=== PATIENT | male | born 1940 | race Caucasian/White ===

== ENCOUNTER 2025-03-14 12:53 | Inpatient (IN) | payer MEDICARE, SELFPAY ==
--- OUTSIDE RECORDS SUMMARY | 2019-02-28 08:00 | XMS_ITS | Continuity of Care Document ---
Author Organization [facility] Address [address] [place] [address] Phone Care Team Providers Care Beam Doffer Name Role Phone Colin Knutson MD Unavailable Unavailable Allergies, Adverse Reactions, Alerts Substance Reaction Status Criticality No Known Allergies Active No Inform ation Medications Medication Instructions Dosage Effective Dates (start - stop) Status Comments pravastatin 40 mg tablet take 1 tablet by oral route every day 40 MG - Active metformin 500 mg tablet take 1 tablet by oral route 2 times every day with morning and evening meals 500 MG - Active aspirin 325 mg tablet take 1 tablet by oral route every day 325 MG - Active amlodipine 5 mg-valsartan 160 mg tablet take 1 tablet by oral route every day 1.00 tablet - Active allopurinol 300 mg tablet take 1 tablet by oral route every day 300 MG - Active Procedures Procedure Date A-Scan Via IOL Master Scanning Computerized Diag Image-retina TC Only Offic/outpt E&m [facility] Accelerate Mobile Apps-oh 45 9 Advance Directives Directive Yes / No Effective Date File Name No Information Encounters Encounter Description Practice Location Reason(s) For Visit Diagnoses Date Provider Providers Copied on Encounter Offic/outpt E&m New Mod-hi 45 [facility], [address] [place], [place], [id number], [place] tel:[phone] [facility] routine new cataract (chief complaint) Nuclear Cataract OUBRVO OS Eamon Shaw. [address], [address], [place], [place], [id number], [place]. tel:[phone] Family History Family Member Type Diagnosis Age At Onset No Information Payers Payer name Insurance type Covered democrat ID Samira mann(mariia) Tito Medicare 16 [id number] Social History Type Description Quantity Date Captured Comments Alcohol Use Details No Caffeine Use Details Tobacco Use Status No Information Smoking Status Never smoker Non-Smoking Tobacco Use Details : No Details Available : No Details Available Sex Male Chief Complaint And Reason For Visit From encounter dated '02/28/2019 13:00'. routine new cataract (chief complaint). Description: The 78 year old male presents for routine new cataract. Patient referred by Dr. Donato Galeana. Patient has moderate gradual blurry vision in both eyes for multiple months. Also has trouble driving or reading. Pt has issues with glare. Reason For Referral Reason For Referral No Information History Of Present Illness Encounter Date Complaint History Of Prese nt Illness No Information Functional Status Date Functional Assessmen t No Information Instructions Date Instruction Additional Infor mation Impression/Plan Related to Nucle ar Cataract OU Impression/Plan Related to BRVO OS Assessments Type Assessment Date assessment Nuclear Cataract OU impression Nuclear Cataract OU: H25.13 assessment BRVO OS impression BRVO OS: H34.8322 Patient Care Teams Name Effective Dates (start - stop) Status Members No Information
[2025-03-14] VITALS (19 sets, daily range): BP systolic 91–140; BP diastolic 56–97; PULSE 71–84; RESP 15–29; TEMP 36.5–36.6; O2SAT 92–97; BMI 32.5
--- NOTE | 2025-03-14 12:51 | ECG_ITS ---
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: : 1940 Requested By: Thao Ashford Order Number: [id number] Reading MD: VAHID BENAVIDEZ Measurements Intervals [place] Rate: 84 P: 16 OR: 219 QRS: -87 QRSD: 154 T: 43 QT: 406 QTc: 481 Interpretive Statements SINUS RHYTHM WITH FIRST DEGREE AV BLOCK RIGHT BUNDLE BRANCH BLOCK [120+ ms QRS DURATION, UPRIGHT V1, 40+ ms S IN I/aVL/V4/V5/V6] LEFT ANTERIOR FASCICULAR BLOCK [QRS AXIS <= -45, QR IN I, RS IN II] SEPTAL MYOCARDIAL INFARCTION , OF INDETERMINATE AGE [40+ ms Q WAVE IN V1/V2] No previous ECG available for comparison Electronically Signed On 03-14-2025 21:34:10 CDT by VAHID BENAVIDEZ [id number] [id number]
--- NOTE | 2025-03-14 12:54 | XRR_ITS ---
PROCEDURE INFORMATION: Exam: XR Chest Exam date and time: 03/14/2025 12:58 PM Age: 84 years old Clinical indication: Pain; Chest pressure; Additional info: Chest pain; Nstemi; Elevated trop TECHNIQUE: Imaging protocol: Radiologic exam of the chest. Views: 1 view. COMPARISON: No relevant prior studies available. FINDINGS: Lungs: Unremarkable. No consolidation or mass. Pleural spaces: Unremarkable. No pleural effusion. No pneumothorax. Heart/Mediastinum: Unremarkable. No cardiomegaly. Bones/joints: Unremarkable. XR/XR chest 1V portable [id number] IMPRESSION: No acute findings.
--- NOTE | 2025-03-14 12:55 | W.ED.CHESTPA ---
HPI - Chest Pain General: Chief Complaint: Chest Pain Stated Complaint: chest pain Time Seen by Provider: 03/14/25 12:54 History of Present Illness: 84-year-old man with a history of obesity, hypertension and diabetes who presents to the emergency room by ambulance from [facility] in [place] with chest pain concern for an abnormal EKG. Dr. Neri from [facility] had talked with cardiology Dr. Thomas here and although there was not a STEMI was an abnormal EKG (right bundle branch block with some ST changes) Dr. Thomas requested the patient be transferred ER to ER for possible emergent Lead Tank Mechanic. Speaking with patient he says he had some slight chest pain overnight that was very brief and then he went to sleep and had no trouble but this afternoon he developed a severe pain about 30 minutes before he went into the hospital. Central chest pressure that radiated into his jaw. On arrival here he says he no longer has the pain in the jaw and he had done better with Nitropaste and heparin drip but is starting to have pain again. He was quite diaphoretic according to [facility] doctor. He has no known cardiac disease. He does report that he has a mass on his kidney and there is plan for biopsy in the near future Related Data Allergies Allergy/AdvReac Type Severity Reaction Status Date / Time No Known Allergies Allergy Verified 03/14/25 13:01 Review of Systems Narrative: Constitutional symptoms: Negative except as documented in HPI. Skin symptoms: Negative except as documented in HPI. Eye symptoms: Negative except as documented in HPI. ENMT symptoms: Negative except as documented in HPI. Respiratory symptoms: Negative except as documented in HPI. Cardiovascular symptoms: Negative except as documented in HPI. Gastrointestinal symptoms: Negative except as documented in HPI. Genitourinary symptoms: Negative except as documented in HPI. Musculoskeletal symptoms: Negative except as documented in HPI. Neurologic symptoms: Negative except as documented in HPI. Psychiatric symptoms: Negative except as documented in HPI. Endocrine symptoms: Negative except as documented in HPI. Physical Exam Narrative: EXAM NARRATIVE: General: Alert, no acute distress. Skin: Warm, dry. Head: Normocephalic, atraumatic. Neck: Supple, trachea midline. Eye: Extraocular movements are intact. Ears, nose, mouth and throat: mucosa moist. Cardiovascular: Regular, Normal peripheral perfusion. Respiratory: Lungs are clear to auscultation, respirations are non-labored, breath sounds are equal, Symmetrical chest wall expansion. Gastrointestinal: Soft, Nontender, Non distended Musculoskeletal: Normal ROM, no deformity. Neurological: Alert and oriented, No focal neurological deficit observed. Psychiatric: Cooperative, appropriate mood & affect. Course Vital Signs: Vital signs: Vital Signs Temperature 97.7 F 03/14/25 12:54 Pulse Rate 83 03/14/25 13:15 Respiratory Rate 21 H 03/14/25 13:07 Blood Pressure 140/97 03/14/25 13:15 Pulse Oximetry 97 03/14/25 13:15 Oxygen Delivery Me thod Room Air 03/14/25 13:07 MDM - Chest Pain Medical Decision Making Differential diagnosis for patient with chest pain includes but is not limited to and based on the above HPI, review of systems and physical exam: Pneumonia. unstable angina. angina. Acute coronary syndrome / AL. Pulmonary embolism. Costochondritis / musculoskeletal. Pleurisy. Pericarditis. Esophageal spasm. Pancreatis. Cholecystitis. Orders placed to evaluate differential diagnosis based on the above differential, HPI and physical exam EKG: Time 1251. Rate 84. Normal sinus rhythm, no ectopy, right bundle branch block, left anterior fascicular block. Septal myocardial infarction of indeterminate age/ST changes. This was reviewed and interpreted by myself the ER physician Chest x-ray: No acute process. No infiltrate. No pneumothorax. Films were interpreted by myself the emergency room provider and pending final radiology review. Lab Review: Laboratory results were reviewed and interpreted by myself the emergency room physician. Mild leukocytosis with white count 14,000. No anemia. At time of Lead Tank Mechanic lab work here is pending but lab work from [facility] just came through. BUN and creatinine are 21 and 1.3. Calcium is 10.3. Him sodium is 141. proBNP was 452. Troponin was 108. Lactate was 2.2 I reviewed the patient's medical record. I reviewed note and labs sent from [facility]. Consultation: I spoke again with Dr. Thomas. He is taking the patient to the Lead Tank Mechanic but given his multiple medical problems he feels the patient needs to be admitted to the hospitalist. Consultation: I spoke with Dr. Guerrero who is on-call for the hospitalist service who agrees to admission. Assessment and plan: Chest pain Elevated troponin Abnormal EKG ?Patient has received a heparin bolus already. Given morphine. Zofran. And 600 mg Plavix in the emergency room -I discussed the patient with the hospitalist on-call who is admitting the patient. - Discussed findings and plan with patient. Answered any questions. - All laboratory values were reviewed and interpreted personally by myself, the ER physician - All imaging was reviewed and interpreted personally by myself, the ER physician. - Evaluation and treatment of this problem were appropriate in the emergency setting Lab Data 03/14/25 12:59 03/14/25 12:59 Laboratory Results WBC 14.32 10^3/uL (3.29-11.43) H 03/14/25 12:59 RBC 6.01 10^6/uL (3.85-5.65) H 03/14/25 12:59 Hgb 15.50 g/dL (11.27-16.99) 03/14/25 12:59 Hct 48.1 % (37-53) 03/14/25 12:59 MCV 80.0 fl (82-101) L 03/14/25 12:59 MCH 25.8 pg (27-33) L 03/14/25 12:59 MCHC 32.2 g/dL (30-55) 03/14/25 12:59 RDW 15.1 % (12.1-15.1) 03/14/25 12:59 Plt Count 176 10^3/cmm (157-399) 03/14/25 12:59 MPV 10.8 fL (7.4-10.4) H 03/14/25 12:59 Neut % (Auto) 66.9 % 03/14/25 12:59 Lymph % (Auto) 15.6 % 03/14/25 12:59 Newton % (Auto) 13.8 % 03/14/25 12:59 Eos % (Auto) 1.7 % 03/14/25 12:59 Baso % (Auto) 1.3 % 03/14/25 12:59 Neut # (Auto) 9.58 10^3/uL (1.8-7.7) H 03/14/25 12:59 Lymph # (Auto) 2.2 10^3/uL (0.8-4.8) 03/14/25 12:59 Newton # (Auto) 2.0 10^3/uL (0.2-0.9) H 03/14/25 12:59 Eos # (Auto) 0.3 10^3/uL (0.0-0.8) 03/14/25 12:59 Baso # (Auto) 0.2 10^3/uL (0.0-0.1) H 03/14/25 12:59 Nucleated RBC % (auto) 0 % 03/14/25 12:59 Nucleated RBCs # 0.0 /100WBC 03/14/25 12:59 XR interpretation done by ED provider, pending radiology final review Discharge Plan Discharge Patient Disposition: Admitted As Inpatient Clinical Impression: Elevated troponin, Chest pain, Abnormal ECG Condition: Stable Coding Level of Care Code ED Group Reservations Coordinator for Jerry Moreno
[2025-03-14 13:03] LABS: Hematocrit 48.1 % (37-53); Hemoglobin 15.50 g/dL (11.27-16.99); Mean Corpuscular HGB Conc 32.2 g/dL (30-55); Mean Corpuscular Hemoglobin 25.8 pg (27-33); Mean Corpuscular Volume 80.0 fl (82-101); Nucleated Red Blood Cells % 0 %; Platelet Count 176 10^3/cmm (157-399); Red Blood Count 6.01 10^6/uL (3.85-5.65); White Blood Count 14.32 10^3/uL (3.29-11.43)
[2025-03-14] MEDS: morphine 4 mg/mL SDV 1 mL IVP (13:05)
[2025-03-14] MEDS: ondansetron 2 mg/ML SDV 2 mL 4 MG IVP (13:05)
--- NOTE | 2025-03-14 13:13 | PC.NURSE ---
Medications: Isabella Ovalles administered: 4000 unit heparin bolus 0.5g Nitro Paste to L upper chest 324mg ASA started herparin gtt (gtt d/c upon arrival to [facility] ED) EMS administered: SL nitro en route (see MAR for meds admin upon pt arrival)
--- NOTE | 2025-03-14 13:20 | P.CONIM_ITS ---
Providers/Reason For Consult 2 Consulting Physician/Specialty*: Digna Thomas MD/interventional cardiology Reason for Consult*: Unstable non-ST elevation CO Requesting Physician: 84-year-old male past medical history si gnificant for history of partial nephrectomy due to renal cell carcinoma diabetes mellitus obesity is non-smoker no drug abuse presented in an outside hospital [facility], ER with chest pain radiating to neck jaw diaphoresis, twelve-lead EKG is consistent with right bundle branch block no significant ST elevation noted. Since suspicion for pulmonary embolism was low and patient had the chest pain relieved with nitroglycerin going to neck and jaw however clinical scenario is more consistent with acute coronary syndrome. Because of the fact patient continues to have chest pain I will proceed with early invasive strategy with coronary anemogram. Further plan will be advised as per progress the patient. Patient has history of prior bleeding per urethra. Patient understand that this procedure because of the blood thinner and antiplatelet can exacerbate bleeding and him. However given the urgency of the nature of the procedure will proceed with left heart cath/PCI if indicated. Attending Physician: Digna Thomas MD Primary Care Provider: Kash Lloyd History of Present Illness History of Present Illness Kash Lozano is a 84 year old male Review of Systems 2 Narrative: Constitutional symptoms: Negative except as documented in HPI. Skin symptoms: Negative except as documented in HPI. Eye symptoms: Negative except as documented in HPI. ENMT symptoms: Negative except as documented in HPI. Respiratory symptoms: Negative except as documented in HPI. Cardiovascular symptoms: Negative except as documented in HPI. Gastrointestinal symptoms: Negative except as documented in HPI. Genitourinary symptoms: Negative except as documented in HPI. Musculoskeletal symptoms: Negative except as documented in HPI. Neurologic symptoms: Negative except as documented in HPI. Psychiatric symptoms: Negative except as documented in HPI. Endocrine symptoms: Negative except as documented in HPI. Medications/Allergies Allergies Allergy/AdvReac Type Severity Reaction Status Date / Time No Known Allergies Allergy Verified 03/14/25 13:01 Vitals/I&O/Wt Last Vital Signs Temp 97.7 F 03/14/25 12:54 Pulse 83 03/14/25 13:15 Resp 21 H 03/14/25 13:07 BP 140/97 03/14/25 13:15 Pulse Ox 97 03/14/25 13:15 O2 Del Method Room Air 03/14/25 13:07 Weight last 48 hrs Weight 220 lb Physical Exam 2 Const: OTHER: GENERAL: Patient is alert, awake and oriented x3. Moderate distress HEART: Regular S1 and S2. No murmur, rub or gallop. LUNGS: Clear to auscultate bilaterally. CENTRAL NERVOUS SYSTEM: Grossly nonfocal. EXTREMITIES: Lower extremities with out edema bilaterally. Data 03/14/25 12:59 03/14/25 12:59 A&P Assessment and plan 1. Abnormal EC. Chest pain: 3. Acute coronary syndrome: Plan: Will proceed with urgent left heart cath/PCI if indicated. Further plan be advised as per progress of patient. Patient has been loaded with 600 mg of Plavix and aspirin he was given heparin in the ED and on Nitropaste with PDMP PDMP Reviewed: Not Reviewed Coding Level of Care Code Acute Code for g Fwd Diagnoses Abnormal ECG R94.31 Chest pain R07.9 Acute coronary syndrome I24.9
[2025-03-14 13:34] LABS: Alanine Aminotransferase < 5 U/L (0-41); Albumin Level 4.1 g/dL (3.5-5.2); Alkaline Phosphatase 68 U/L (40-130); Anion Gap 19.0 (5-19); Aspartate Amino Transferase 19 U/L (0-40); Blood Urea Nitrogen 21 mg/dL (8-23); Calcium 9.7 mg/dL (8.5-10.5); Carbon Dioxide 23 mmol/L (22-29); Chloride 104 mmol/L (98-107); Creatinine Clr Calc Pharmacy 55.2719; Globulin 2.8 g/dL (1.3-4.6); Glucose 130 mg/dL (65-115); NT Pro B Type Natriuretic Pept 539 pg/mL (0-450); Osmolality Calculated 299 mOsm/kg (285-295); Potassium 4.0 mmol/L (3.5-5.1); Sodium 142 mmol/L (136-145); Total Protein 6.9 g/dL (6.6-8.7)
--- NOTE | 2025-03-14 15:22 | P.PCN_ITS ---
Procedure Note: Date of procedure: 03/14/25 Pre-procedure diagnosis: Acute coronary syndrome Procedure: Indication acute Conn syndrome/unstable non-ST elevation OK Urgent left heart cath was performed Left main did not have significant Proximal LAD has high-grade 90% stenosis Mid LAD has 99% subtotal calcified occlusion acute on chronic it is the culprit vessel, diagonal branch has mid 50 to 60% stenosis Left circumflex is a large-caliber codominant vessel no significant stenosis RCA is moderate-sized in caliber vessel with chronic mid total occlusion, conus branch has mid 90% stenosis PCI to mid and proximal LAD using intravascular lithotripsy due to high calcified lesions multiple balloon angioplasties including compliant noncompliant balloon followed by 2 drug-eluting stents 1 in mid LAD and 1 in proximal LAD with excellent angiographic result and oriental orthodox of BENNY-3 flow. No complication noted. Plan: Patient was loaded with 600 mg of Plavix in the ER along with aspirin. Continue dual antiplatelet therapy in the form of 75 mg of Plavix and 81 mg of aspirin from tomorrow Statin has been added Will add metoprolol or carvedilol depending upon the blood pressure over next 24 hours. Echocardiogram to assess LV function depending upon that we will add DARIANA ARB Entresto or SGLT2 Full note to be dictated Further plan will be devised as per progress of the patient Coding Level of Care Code Acute Code for Jerry Moreno
--- NOTE | 2025-03-14 17:53 | PM.HP ---
Providers/Chief Complaint Admitting Physician: Baldev Guerrero MD Primary Care Provider: Kash Gabino Chief Complaint: chest pain History of Present Illness Kash Lozano is a 84 year old male with history of hyperlipidemia, gout, left kidney cancer status post 2 resections of about 10% of his kidney each time at [facility] in [place] by Dr. Braun. 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 After care home he felt that [place] was too crowded so he moved to [place] to be close to his son and daughter here. Son is a [employer] at [employer] Patient is active in his yard and typically does not have trouble with stairs. He was using a license inspector in his yard which is heavy and on a wagon and he pushed and pulled that up and down the hills did okay but last evening had some chest discomfort thought it was heartburn. This morning he had chest pain more severe, abnormal EKG right bundle branch block and ST-T wave changes. Chest pain had become severe radiating to his jaw with chest pressure relieved by Nitropaste and heparin drip with obvious bedside diaphoresis noted. Patient underwent selective coronary angiogram with 2 stents to the LAD 1 proximal and 1 mid. This required intravascular lithotripsy for hide grade calcified lesions, multiple balloon angioplasties followed by 2 drug-eluting stents. He has been loaded with Plavix and aspirin in the ER and will continue on 75 mg Plavix and 81 mg aspirin starting tomorrow. 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 Left circumflex is large and no significant stenosis Patient is accompanied by his Mayra and he says he feels great now Review of Systems Narrative: General no fevers chills Cardiovascular positive for chest pain today but he has not previously had dyspnea on exertion. he has nocturia 3-5 times a night with good flow but small amount. He states he is on Flomax but has not previously been on Proscar. Medications/Allergies Home Medications ?Medication ?Instructions ?Recorded ?Confirmed ?Last Taken ?Type Protagenix 1,000 mg PO TID 03/14/25 03/14/25 03/14/25 08:00 History allopurinol 300 mg tablet 300 mg PO DAILY 0903/14/25 03/14/25 08:00 History amlodipine 5 mg-valsartan 160 mg 0.5 tab PO DAILY 03/14/25 03/14/25 03/14/25 08:00 History tablet ferrous fumarate 55 mg (18 mg See Rx Instructions .Route .COMPLEX 03/14/25 03/14/25 03/13/25 08:00 History iron) tablet,extended release metformin 500 mg tablet See Rx Instructions .Route .COMPLEX 03/14/25 03/14/25 03/13/25 History pravastatin 40 mg tablet See Rx Instructions .Route .COMPLEX 03/14/25 03/14/25 03/13/25 08:00 History tamsulosin 0.4 mg capsule 0.4 mg PO DAILY 03/14/25 03/14/25 03/14/25 08:00 History Allergies Allergy/AdvReac Type Severity Reaction Status Date / Time No Known Allergies Allergy Verified 03/14/25 13:01 PFSH Acute PFSH: Medical History (Updated 03/14/25 @ 19:10 by Baldev Guerrero MD) Right kidney mass History of primary malignant neoplasm of left kidney BPH (benign prostatic hyperplasia) Hyperlipidemia Social History (Updated 03/14/25 @ 19:09 by Baldev Guerrero MD) Smoking and tobacco/nicotine status: never used tobacco/nicotine Alcohol intake: current Alcohol intake frequency: holidays/special occasions only Substance/Drug Use: never Current occupational status: retired 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 [employer] Vitals/I&O/Wt Last Vital Signs Temp 97.7 F 03/14/25 12:54 Pulse 75 03/14/25 17:15 Resp 22 H 03/14/25 17:15 BP 102/71 03/14/25 17:15 Pulse Ox 93 03/14/25 17:15 O2 Del Method Room Air 03/14/25 15:38 03/14/25 03/14/25 03/14/25 06:59 14:59 22:59 Intake Total 360 / 360 Balance 360 / 360 Weight last 48 hrs Weight 104.734 kg Weight 99.79 kg Physical Exam Narrative: General well-developed well-nourished obese male in no acute cardiopulmonary stress Neck no JVD or bruits Cardiovascular regular rate and rhythm no loud murmurs Lungs clear to auscultation bilaterally Abdomen positive bowel tones soft nontender Calves trace ankle edema Data 03/14/25 12:59 03/14/25 12:59 A&P Assessment and plan 1. Acute coronary syndrome: EKG shows sinus rhythm with right bundle branch block and elevated troponin from outside hospital consistent with NSTEMI. Patient is on dual antiplatelet therapy and atorvastatin following PCI with stent. Will check lipids, lipoprotein a, hs-CRP and A1c and TSH 2. Hyperlipidemia: Continue atorvastatin 3. BPH (benign prostatic hyperplasia): Continue Flomax. Will add PSA and if greater than 1.5 we will add 5 alpha reductase inhibitor such as Proscar because the patient has BPH pH with nocturia 3-5 times a night 4. History of primary malignant neoplasm of left kidney: Stable and following with his urologist 5. Right kidney mass: Has evaluation of right kidney pending as well PDMP PDMP Reviewed: Not Reviewed Attestations Medical Necessity Statement*: Patient claudia in hospital with plans to titrate medication and likely discharge on Sunday Coding Level of Care Code 92839 Diagnoses Acute coronary syndrome I24.9 Hyperlipidemia E78.5 BPH (benign prostatic hyperplasia) N40.0 History of primary malignant neoplasm of left kidney Z85.528 Right kidney mass N28.89 Time Spent (min) 55
--- NOTE | 2025-03-14 18:23 | PC.NURSE ---
Initiated TR Band removal from right wrist at 1630 removing 2ml of air every 15-20min until all air removed. Band is off at this time. No s/s of bleeding or hematoma formation observed. Covered site with 2x2 and bio-occlusive dressing. Instructed patient on site care with restrictions. Patient verbalized complete understanding. Family at bedside. Assisted patient up to bathroom. No distress observed.
[2025-03-15] VITALS (7 sets, daily range): BP systolic 108–144; BP diastolic 69–88; PULSE 70–86; RESP 10–25; TEMP 36.6–36.8; O2SAT 92–97
[2025-03-15 06:38] LABS: Hematocrit 46.6 % (37-53); Hemoglobin 14.60 g/dL (11.27-16.99); Mean Corpuscular HGB Conc 31.3 g/dL (30-55); Mean Corpuscular Hemoglobin 25.8 pg (27-33); Mean Corpuscular Volume 82.5 fl (82-101); Nucleated Red Blood Cells % 0 %; Platelet Count 159 10^3/cmm (157-399); Red Blood Count 5.65 10^6/uL (3.85-5.65); White Blood Count 14.65 10^3/uL (3.29-11.43)
[2025-03-15 07:29] LABS: Anion Gap 12.2 (5-19); Blood Urea Nitrogen 20 mg/dL (8-23); CRP High Sensitivity Cardiac 0.500 mg/dL (0.0-0.3); Calcium 9.3 mg/dL (8.5-10.5); Carbon Dioxide 26 mmol/L (22-29); Chloride 106 mmol/L (98-107); Cholesterol 175 mg/dL (0-200); Creatinine Clr Calc Pharmacy 44.2980; Estmated Average Glucose 123; Glucose 106 mg/dL (65-115); HDL Cholesterol 35 mg/dL (60-100); Hemoglobin A1C 5.9 % (4.0-6.0); Osmolality Calculated 293 mOsm/kg (285-295); Potassium 4.2 mmol/L (3.5-5.1); Prostate Specific Antigen 6.200 ng/mL (0-4); Sodium 140 mmol/L (136-145); Thyroid Stimulating Hormone 4.00 uIU/mL (0.27-4.20); Triglycerides 170 mg/dL (0-150)
--- NOTE | 2025-03-15 10:37 | P.PN_ITS ---
Subjective 2 Subjective: No overnight event Vitals/I&O/Wt Last Vital Signs Temp 97.9 F 03/15/25 09:03 Pulse 78 03/15/25 09:03 Resp 19 H 03/15/25 09:03 BP 133/81 03/15/25 09:03 Pulse Ox 97 03/15/25 09:03 O2 Del Method Nasal Cannula 03/15/25 04:00 03/14/25 03/15/25 03/15/25 22:59 06:59 14:59 Intake Total 360 / 360 1256.667 / 1616.667 360 / 360 Output Total 200 / 200 350 / 550 200 / 200 Balance 160 / 160 906.667 / 1066.667 160 / 160 Weight last 48 hrs Weight 229 lb 14.4 oz Weight 129 lb 14.4 oz Weight 230 lb 14.4 oz Weight 220 lb Physical Exam 2 Const: OTHER: GENERAL: Patient is alert, awake and oriented x3. HEART: Regular S1 and S2. No murmur, rub or gallop. LUNGS: Clear to auscultate bilaterally. CENTRAL NERVOUS SYSTEM: Grossly nonfocal. EXTREMITIES: Lower extremities with out edema bilaterally. Data 03/15/25 06:07 03/15/25 06:07 A&P Assessment and plan 1. Acute coronary syndrome: 2. Non-ST elevation (NSTEMI) myocardial infarction: 3. Hyperlipidemia: PDMP PDMP Reviewed: Not Reviewed Coding Level of Care Code Acute Code for [facility] Fwd Diagnoses Acute coronary syndrome I24.9 Non-ST elevation (NSTEMI) myocardial infarction I21.4 Hyperlipidemia E78.5
[2025-03-15] MEDS: metoprolol succinate ER (24 HR) 25 mg Tablet 12.5 MG PO (12:15)
[2025-03-15] MEDS: heparin 5,000 unit/mL INJ 1 mL 5000 UNIT SUBCUT (15:28)
--- NOTE | 2025-03-15 15:28 | USCV_ITS ---
Kash Lozano Age: 84 Gender: M : 1940 Exam Date: 03/15/2025 08:55 Ordering Phys: Digna Thomas MD ([email or web address]) Technologist: Duane Grimes [place] [facility] [place]: nstemi BP: 139 / 88 HR: 75 Rhythm: Sinus Technical Quality: Adequate MEASUREMENTS (Male / Female) Normal Values 2D ECHO LV Diastolic Diameter PLAX 4.7 cm 4.2 - 5.9 / 3.9 - 5.3 cm IVS Diastolic Thickness 1.6 cm 0.6 - 1.0 / 0.6 - 0.9 cm IVS Systolic Thickness 1.6 cm LVPW Diastolic Thickness 0.7 cm 0.6 - 1.0 / 0.6 - 0.9 cm LVPW Systolic Thickness 1.7 cm LVOT Diameter 2.1 cm LV Ejection Fraction 2D Teich 57.9 % LV Ejection Fraction MOD 4C 79.8 % LV Ejection Fraction MOD 2C 73.4 % LV Ejection Fraction 2C AL 72.5 % LA Diameter 3.6 cm RA Systolic Volume 4C AL 30.8 ml RA Systolic Volume 4C MOD 29.1 ml LA Sys Volume AL 40.7 cm cubed LA Sys Volume Index AL 17.8 cm cubed/m squared Aorta at Sinotubular Diameter 2.6 cm IVC Diameter 1.6 cm DOPPLER AV Peak Velocity 212.7 cm/s LVOT Peak Velocity 107.0 cm/s AV Area Cont Eq vti 1.8 cm squared AV Area Cont Eq pk 1.7 cm squared MV Peak Velocity 133.0 cm/s MV Area PHT 4.4 cm squared Mitral E to A Ratio 0.5 TR Peak Velocity 197.0 cm/s TR Peak Gradient 15.5 mmHg TR Mean Velocity 168.0 cm/s TR Mean Gradient 11.8 mmHg TR Velocity Time Integral 44.1 cm PV Peak Velocity 89.0 cm/s RV Ejection Time 0.3 s FINDINGS Left Ventricle Normal left ventricular cavity size. Mildly decreased left ventricular systolic function. Left ventricular ejection fraction is estimated at 50 %. There is anterior and septal mild hypokinesis.Grade I/IV diastolic dysfunction (abnormal relaxation filling pattern), normal to mildly elevated filling pressures. Right Ventricle The right ventricle is normal in size and function. Right Atrium The right atrium is normal in size. Left Atrium The left atrium is normal in size. Mitral Valve Moderately thickened mitral valve. Mild mitral annular calcification. No mitral valve stenosis. No mitral valve regurgitation. Aortic Valve Severe aortic valve calcification. Moderate aortic valve stenosis, mean gradient 12.3 mmHg, ANNE 1.8 cm squared. Tricuspid Valve Structurally normal tricuspid valve without significant stenosis or regurgitation. Pulmonary artery systolic pressure is normal. Pulmonic Valve Structurally normal pulmonic valve without significant stenosis. There is no pulmonic regurgitation. Pericardium Normal pericardium without effusion. Aorta Normal ascending aorta dimension. IVC The inferior vena cava appears normal. CONCLUSIONS Normal left ventricular cavity size. Mildly decreased left ventricular systolic function. Left ventricular ejection fraction is estimated at 50 %. There is anterior and septal mild hypokinesis.Grade I/IV diastolic dysfunction (abnormal relaxation filling pattern), normal to mildly elevated filling pressures. Severe aortic valve calcification. Moderate aortic valve stenosis, mean gradient 12.3 mmHg, ANNE 1.8 cm squared. There is no pericardial effusion. Right atrial pressure is around 5 mm of mercury. Digna Thomas MD (Electronically Signed) Final Date: 15 March 2025 11:29 S
--- NOTE | 2025-03-15 16:08 | P.PN_ITS ---
Subjective 2 Subjective: 84-year-old male status post 2 LAD stents yesterday states he feels great today. He has been walking around and did fine. He has not had no further chest pain. Patient is accompanied by his Vitals/I&O/Wt Last Vital Signs Temp 97.9 F 03/15/25 09:03 Pulse 80 03/15/25 14:00 Resp 12 03/15/25 12:01 BP 144/77 03/15/25 12:01 Pulse Ox 96 03/15/25 12:01 O2 Del Method Nasal Cannula 03/15/25 04:00 03/15/25 03/15/25 03/15/25 06:59 14:59 22:59 Intake Total 1256.667 / 1616.667 720 / 720 Output Total 350 / 550 200 / 200 Balance 906.667 / 1066.667 520 / 520 Weight last 48 hrs Weight 104.281 kg Weight 58.922 kg Weight 104.734 kg Weight 99.79 kg Physical Exam 2 Narrative: General well-developed well-nourished obese male in no acute cardiopulmonary stress Neck no JVD or bruits Cardiovascular regular rate and rhythm no loud murmurs Lungs clear to auscultation bilaterally Abdomen positive bowel tones soft nontender Calves trace ankle edema Data 03/15/25 06:07 03/15/25 06:07 A&P Assessment and plan 1. Acute coronary syndrome: EKG shows sinus rhythm with right bundle branch block and elevated troponin from outside hospital consistent with NSTEMI. Patient is on dual antiplatelet therapy and atorvastatin following PCI with stent. Hs-CRP was 0.5 which is barely high and not in need of treatment Triglycerides 170 LDL 106 HDL 35 Lipoprotein a result is pending He was transition to atorvastatin 40 from pravastatin 40 goal LDL below 50 and drop in triglyceride to affected triglyceride to HDL ratio of less than 1.5 ideally. Increase to 80 mg atorvastatin follow-up in 2 months and consider adding fenofibrate or omega-3 fatty acids 2. Hyperlipidemia: Continue atorvastatin but increase to 80 mg but increase to 80 mg and take this as tolerated Hs-CRP was 0.5 which is barely high and not in need of treatment Triglycerides 170 LDL 106 HDL 35 Lipoprotein a result is pending He was transition to atorvastatin 40 from pravastatin 40 goal LDL below 50 and drop in triglyceride to affected triglyceride to HDL ratio of less than 1.5 ideally. Follow-up in 2 months and consider adding fenofibrate or omega-3 fatty acids 3. BPH (benign prostatic hyperplasia): Continue Flomax. Will add PSA and if greater than 1.5 we will add 5 alpha reductase inhibitor such as Proscar because the patient has BPH pH with nocturia 3-5 times a night PSA is 6.2 and patient states he has an enlarged prostate already reported to him. Start Avodart which is an alpha 1 reductase inhibitor to shrink the prostate 4. History of primary malignant neoplasm of left kidney: Stable and following with his urologist 5. Right kidney mass: Has evaluation of right kidney pending as well. Patient is wondering when Plavix will be able to be held. Counseled him that he should discuss it with with Dr. Thomas but I do not think we do want to hold the Plavix at all for at least 3 months and ideally not held up to a year but depending on the findings on the kidney compromise have to be made PDMP PDMP Reviewed: Not Reviewed Attestations 2 Medical Necessity Statement*: Patient remains in hospital for monitoring with ambulation post PCI with 2 drug- eluting stents in the LAD. Anticipate discharge after 1 midnight more in the morning tomorrow Coding Level of Care Code Acute Code for Chg Fwd Diagnoses Acute coronary syndrome I24.9 Hyperlipidemia E78.5 BPH (benign prostatic hyperplasia) N40.0 History of primary malignant neoplasm of left kidney Z85.528 Right kidney mass N28.89 Time Spent (min) 35
[2025-03-16 00:19] VITALS: BP 145/85; PULSE 74; RESP 16; TEMP 36.6; O2SAT 97
[2025-03-16 03:38] VITALS: BP 129/77; PULSE 76; RESP 20; TEMP 36.7; O2SAT 94
[2025-03-16] MEDS: heparin 5,000 unit/mL INJ 1 mL 5000 UNIT SUBCUT (03:41)
[2025-03-16 08:09] VITALS: BP 139/79; PULSE 75; RESP 18; TEMP 36.7; O2SAT 93
--- NOTE | 2025-03-16 08:45 | PM.DCS ---
Discharge Providers Date of Admission: 03/14/25 15:17 Date of Discharge: March 16, 2025 Attending Provider at Admission: Digna Thomas MD Attending Provider at Discharge: Tyron Coles MD Primary Care Provider: Kahs Gabino Diagnoses at Discharge Discharge Diagnosis 1. Acute coronary syndrome: 2. Hyperlipidemia: 3. BPH (benign prostatic hyperplasia): 4. History of primary malignant neoplasm of left kidney: 5. Right kidney mass: Reason for Visit Reason for Visit: chest pain Hospital Course Hospital Course Kash Lozano is a 84 year old male with history of hyperlipidemia, gout, left kidney cancer status post 2 resections of about 10% of his kidney each time at [facility] in [place] by Dr. Braun. 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 After detention he felt that [place] was too crowded so he moved to [place] to be close to his son and daughter here. Son is a Burson at [employer] Patient is active in his yard and typically does not have trouble with stairs. He was using a tank car repairer in his yard which is heavy and on a wagon and he pushed and pulled that up and down the hills did okay but last evening had some chest discomfort thought it was heartburn. This morning he had chest pain more severe, abnormal EKG right bundle branch block and ST-T wave changes. Chest pain had become severe radiating to his jaw with chest pressure relieved by Nitropaste and heparin drip with obvious bedside diaphoresis noted. Patient underwent selective coronary angiogram with 2 stents to the LAD 1 proximal and 1 mid. This required intravascular lithotripsy for high grade calcified lesions, multiple balloon angioplasties followed by 2 drug-eluting stents. He has been loaded with Plavix and aspirin in the ER and will continue on 75 mg Plavix and 81 mg aspirin starting tomorrow. 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 Left circumflex is large and no significant stenosis Patient did not have any further chest pain during hospitalization. He has been discharged home in medically stable condition on DAPT, statin with advised to follow-up with cardiology team as an outpatient. Physical Exam Narrative: General well-developed well-nourished obese male in no acute cardiopulmonary stress Neck no JVD or bruits Cardiovascular regular rate and rhythm no loud murmurs Lungs clear to auscultation bilaterally Abdomen positive bowel tones soft nontender Calves trace ankle edema Discharge Data Studies Completed and Pending Completed Studies During Hospitalization Category Date Time Status XR chest 1V portable [id number] Stat Exams 03/14/25 12:54 Completed CV. 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 Echocardiogram: CONCLUSIONS Normal left ventricular cavity size. Mildly decreased left ventricular systolic function. Left ventricular ejection fraction is estimated at 50 %. There is anterior and septal mild hypokinesis.Grade I/IV diastolic dysfunction (abnormal relaxation filling pattern), normal to mildly elevated filling pressures. Severe aortic valve calcification. Moderate aortic valve stenosis, mean gradient 12.3 mmHg, ANNE 1.8 cm squared. There is no pericardial effusion. Right atrial pressure is around 5 mm of mercury. Digna Thomas MD (Electronically Signed) Final Date: 15 March 2025 Laboratory Results WBC 14.65 10^3/uL (3.29-11.43) H 03/15/25 06:07 RBC 5.65 10^6/uL (3.85-5.65) 03/15/25 06:07 Hgb 14.60 g/dL (11.27-16.99) 03/15/25 06:07 Hct 46.6 % (37-53) 03/15/25 06:07 MCV 82.5 fl (82-101) 03/15/25 06:07 MCH 25.8 pg (27-33) L 03/15/25 06:07 MCHC 31.3 g/dL (30-55) 03/15/25 06:07 RDW 15.4 % (12.1-15.1) H 03/15/25 06:07 Plt Count 159 10^3/cmm (157-399) 03/15/25 06:07 MPV 10.8 fL (7.4-10.4) H 03/15/25 06:07 Neut % (Auto) 68.2 % 03/15/25 06:07 Lymph % (Auto) 13.9 % 03/15/25 06:07 [place] % (Auto) 14.8 % 03/15/25 06:07 Eos % (Auto) 1.4 % 03/15/25 06:07 Baso % (Auto) 1.0 % 03/15/25 06:07 Neut # (Auto) 9.98 10^3/uL (1.8-7.7) H 03/15/25 06:07 Lymph # (Auto) 2.0 10^3/uL (0.8-4.8) 03/15/25 06:07 [place] # (Auto) 2.2 10^3/uL (0.2-0.9) H 03/15/25 06:07 Eos # (Auto) 0.2 10^3/uL (0.0-0.8) 03/15/25 06:07 Baso # (Auto) 0.2 10^3/uL (0.0-0.1) H 03/15/25 06:07 Nucleated RBC % (auto) 0 % 03/15/25 06:07 Nucleated RBCs # 0.0 /100WBC 03/15/25 06:07 Sodium 140 mmol/L (136-145) 03/15/25 06:07 Potassium 4.2 mmol/L (3.5-5.1) 03/15/25 06:07 Chloride 106 mmol/L (98-107) 03/15/25 06:07 Carbon Dioxide 26 mmol/L (22-29) 03/15/25 06:07 Anion Gap 12.2 (5-19) 03/15/25 06:07 BUN 20 mg/dL (8-23) 03/15/25 06:07 Creatinine 1.2 mg/dL (0.7-1.2) 03/15/25 06:07 GFR Calculation Not Reportable 03/15/25 06:07 Glucose 106 mg/dL (65-115) 03/15/25 06:07 Estimat Average Glucose 123 03/15/25 06:07 Hemoglobin A1c 5.9 % (4.0-6.0) 03/15/25 06:07 Calculated Osmolality 293 mOsm/kg (285-295) 03/15/25 06:07 Calcium 9.3 mg/dL (8.5-10.5) 03/15/25 06:07 Total Bilirubin 0.4 mg/dL (0.15-1.2) 03/14/25 12:59 AST 19 U/L (0-40) 03/14/25 12:59 ALT < 5 U/L (0-41) 03/14/25 12:59 Alkaline Phosphatase 68 U/L (40-130) 03/14/25 12:59 C-React Prot High Sens 0.500 mg/dL (0.0-0.3) H 03/15/25 06:07 NT-Pro-B Natriuret Pep 539 pg/mL (0-450) H 03/14/25 12:59 Total Protein 6.9 g/dL (6.6-8.7) 03/14/25 12:59 Albumin 4.1 g/dL (3.5-5.2) 03/14/25 12:59 Globulin 2.8 g/dL (1.3-4.6) 03/14/25 12:59 Triglycerides 170 mg/dL (0-150) H 03/15/25 06:07 Cholesterol 175 mg/dL (0-200) 03/15/25 06:07 LDL Cholesterol, Calc 106 mg/dL (50-129) 03/15/25 06:07 HDL Cholesterol 35 mg/dL (60-100) L 03/15/25 06:07 LDL/HDL Ratio 3.03 RATIO (0.00-3.22) 03/15/25 06:07 Cholesterol/HDL Ratio 5.00 mg/dL (1.0-5.00) 03/15/25 06:07 Prostate Specific Ag 6.200 ng/mL (0-4) H 03/15/25 06:07 TSH 4.00 uIU/mL (0.27-4.20) 03/15/25 06:07 Vitals Last Vital Signs Temp 98.1 F 03/16/25 08:09 Pulse 75 03/16/25 08:09 Resp 18 03/16/25 08:09 BP 139/79 03/16/25 08:09 Pulse Ox 93 03/16/25 08:09 O2 Del Method Room Air 03/16/25 03:38 Discharge Plan Discharge Patient Disposition: Home Condition: Stable Prescriptions: New aspirin 81 mg Tablet,Delayed Release (Dr/Ec) 81 mg PO DAILY Qty: 60 0RF clopidogrel 75 mg Tablet 75 mg PO DAILY Qty: 30 0RF metoprolol succinate 25 mg Tablet Extended Release 24 Hr 12.5 mg PO DAILY 30 Days Qty: 30 0RF dutasteride 0.5 mg Capsule 0.5 mg PO DAILY Qty: 30 0RF amlodipine 5 mg tablet 5 mg PO DAILY Qty: 30 0RF valsartan 160 mg tablet 160 mg PO DAILY Qty: 30 0RF Continued ferrous fumarate 55 mg (18 mg iron) Tablet Extended Release See Rx Instructions .ROUTE .COMPLEX Rx Instructions: 55 mg orally 3 times per week allopurinol 300 mg Tablet 300 mg PO DAILY Protagenix 1,000 mg 1,000 mg PO TID Changed pravastatin 40 mg Tablet 40 mg PO DAILY Qty: 30 0RF tamsulosin 0.4 mg capsule 0.8 mg PO DAILY Qty: 60 0RF Discontinued metformin 500 mg Tablet See Rx Instructions .ROUTE .COMPLEX Rx Instructions: 500 mg orally 3 times per week amlodipine-valsartan 5-160 mg tablet 0.5 tab PO DAILY Discharge Order = DC NOW: Discharge Order (Routine); Ordered 03/16/25 Ordered By: Tyron Coles Referrals: Digna Thomas MD [Physician, Cardiology] - 04/07/25 1:30 pm Kash Lloyd [Primary Care Provider, Family Practice] - 03/18/25 10:40 am Discharge Diet: Cardiac Discharge Activity: Resume usual activity and Increase activity as tolerated Patient Instructions: Metoprolol (By mouth) (Lopressor, Toprol XL), Amlodipine (By mouth), Clopidogrel (By mouth) (Plavix), Dutasteride (By mouth) (Avodart), Coronary Angioplasty (DC), Opioid Safety, Post Angiogram Home Care Instructions, Patient Portal & Mu Instructions Activity Restrictions/Additional Instructions: Follow-up with cardiology on set appointment. Take aspirin, Plavix along with statin. Check your blood pressure daily at home maintain blood pressure diary. Discharge Attestations Time Spent in Discharge Care*: greater than 30 min Specific Discharge Activities: educating patient, educating and/or supporting family/caregiver, discussing with pcp/other providers, discussing with manager of case management/social workers/dc planners, documenting/other paperwork and evaluating patient/reviewing data Status at Discharge: Cognitive status at discharge: cognitively intact, Behavioral status at discharge: cooperative, Functional status at discharge: independent ambulation, Overall status at discharge: patient is back to baseline Quality Metrics Clinical Quality Measures [ No reported AMI, CVA or VTE this stay] Coding Level of Care Code 32305 Total time (in minutes) for Discharge: 65 Diagnoses Acute coronary syndrome I24.9 Hyperlipidemia E78.5 BPH (benign prostatic hyperplasia) N40.0 History of primary malignant neoplasm of left kidney Z85.528 Right kidney mass N28.89
[2025-03-16] MEDS: metoprolol succinate ER (24 HR) 25 mg Tablet 12.5 MG PO (09:12)
--- NOTE | 2025-03-16 09:24 | PC.SOCIAL ---
IMM Update pg 2 of IMM Updated and reviewed w/ patient. Copy provided and copy dated, initialed and placed in chart.
[2025-03-16 09:33] LABS: Iron 31 ug/dL (59-158); Total Iron Binding Capacity 245 mcg/dl; Unsaturated Iron Binding 214 ug/dL (112-347); Vitamin B12 506 pg/mL (232-1245)
--- NOTE | 2025-03-16 09:52 | PC.CHAP ---
Pastoral Care Encounter/Spiritual Assessment Type of Contact [] Declined press secretary visit [] Patient/Family/Request visit [] Outpatient visit [] Follow-up visit [] Physician referral [] Code/Alert [x] Routine visit [] Staff referral [] Actively dying [] Patient sleeping [] Family support [] [] Out of room [] Palliative care [] [] Receiving care in room [] Pre-surgical visit [] Trauma [] Long length of stay [] ICU visit [] Other: Relational/Emotional Strength [] Patient feels connected with others/family/visitors/staff [] Distress [] Loneliness/isolation [] Abandonment Spirituality of Patient [x] Person of Josefina [] Attends Congregational of their Josefina [x] Believes in Prayer [] Reads Bible or Advent materials [] There are Spiritual issues to be addressed Copy Center Associate Interventions [x Prayer [x] Active listening [] Non-anxious presence [] Spiritual/emotional support [] Crisis/trauma care [] Spiritual counseling [] Bereavement support [] Provided bereavement packet [x] Provided Bible/devotional materials [] Provided toy/stuffed animal, coloring book to patient or family member [] Provided Communion [] Anointing/Butler [] Salvation [x] Completed spiritual assessment [] Other: Impact on Illness or Injury [] Angry [] Fearful [] Anxious [] Often cries [] Exhaustion [] Unable to work [] Unable to attend mandaeism [] Unable to walk/stand [] Unable to read [] Unable to drive [] Unable to eat/drink [] Unable to sleep [] Unable to be with family [] Patient intubated [] Other: Summary Time spent with patient 10 min
--- NOTE | 2025-03-16 11:39 | P.PN_ITS ---
<Statement entered by Digna Thomas MD - 03/19/25 20:05> Patient was evaluated and cared for in conjunction with an advanced practice practitioner. I personally examined the patient and reviewed the chart and all pertinent data including imaging, telemetry, and laboratory results. I discussed the patient in detail with the advanced practice practitioner. Please see their note for complete H&P testing result and agreed upon plan of care for the patient. Subjective 2 Subjective: No events overnight, has done well. Will discuss with his team in regards to urgency of renal biopsy, if it cannot be delayed for 3 months, then he can wait one month, hold Plavix for 5 days and restart after procedure. No chest pain since stents to LAD. Vitals/I&O/Wt Last Vital Signs Temp 98.1 F 03/16/25 08:09 Pulse 75 03/16/25 08:09 Resp 18 03/16/25 08:09 BP 139/79 03/16/25 08:09 Pulse Ox 93 03/16/25 08:09 O2 Del Method Room Air 03/16/25 03:38 03/15/25 03/16/25 03/16/25 22:59 06:59 14:59 Intake Total 480 / 1200 480 / 480 Balance 480 / 1000 480 / 480 Weight last 48 hrs Weight 229 lb 14.4 oz Weight 129 lb 14.4 oz Weight 230 lb 14.4 oz Weight 220 lb Physical Exam 2 Const: COMMON NORMALS: no acute distress and patient oriented x3 GENERAL APPEARANCE: cooperative ORIENTATION/CONSCIOUSNESS: Yes awake, Yes oriented to person, Yes oriented to place and Yes oriented to time Chest: COMMONS NORMALS: normal inspection of the chest and normal palpation of entire chest wall CHEST: Yes Symmetrical chest wall rise Resp: COMMON NORMALS: normal respiratory effort, No retractions, No use of accessory muscles and clear to auscultation bilaterally AUSCULTATION: clear to auscultation bilaterally Cardio: COMMON NORMALS: regular rate, regular rhythm, S1 normal heart sound present, S2 normal heart sound present, No gallops present (Cardio), No clicks present (Cardio), No murmurs present (Cardio) and No rub (Cardio) RATE: r egular rate RHYTHM: regular rhythm HEART SOUNDS: S1 normal heart sound present and S2 normal heart sound present PERIPHERAL PULSES: radial pulses present positive right 2+ and femoral pulses present positive right 2+ Neuro: COMMON NORMALS: patient oriented x3 and moves all extremities S ENSORIUM/ORIENTATION: Yes oriented to person, Yes oriented to place and Yes oriented to time Skin: WOUNDS: Yes surgical site (no hematoma palpable) Details: no odor Data 03/15/25 06:07 03/15/25 06:07 A&P Assessment and plan 1. Non-ST elevation (NSTEMI) myocardial infarction: 2. Acute coronary syndrome: 3. Hyperlipidemia: 4. Right kidney mass: Plan: He can discharge home today. Continue aspirin, Plavix, atorvastatin. LVEF is 50%, recommend to continue valsartan, metoprolol succinate 12.5mg daily. PDMP PDMP Reviewed: Not Reviewed Attestations 2 Medical Necessity Statement*: dc home Coding Level of Care Code Acute Code for g Fwd Diagnoses Non-ST elevation (NSTEMI) myocardial infarction I21.4 Acute coronary syndrome I24.9 Hyperlipidemia E78.5 Right kidney mass N28.89
[2025-03-16 11:43] VITALS: BP 139/79; PULSE 75; RESP 18; TEMP 36.6; O2SAT 93
== END 2025-03-16 13:02 | disposition home or self-care (01) | DRG 324 ==
LOC: ER 13:09 → CCL 13:14 → CSU 15:18
PROVIDERS: Internal Medicine; Admitting Provider Internal Medicine Cardiovascular Disease; Emergency Provider Emergency Medicine; PCP Family Medicine; Visit Provider Student in an Organized Health Care Education/Training Program
PROC: 027035Z Dilation of Coronary Artery, One Artery with Two Drug-eluting Intraluminal Devices, Percutaneous Approach (ICD-10-PCS; principal; 2025-03-14 13:15)
PROC: 027035Z Dilation of Coronary Artery, One Artery with Two Drug-eluting Intraluminal Devices, Percutaneous Approach (ICD-10-PCS; 2025-03-14 13:15)
DX: I21.4 Non-ST elevation (NSTEMI) myocardial infarction (principal); I24.9 Acute ischemic heart disease, unspecified; E78.5 Hyperlipidemia, unspecified; N40.0 Benign prostatic hyperplasia without lower urinary tract symptoms; N28.89 Other specified disorders of kidney and ureter; I45.10 Unspecified right bundle-branch block; I25.10 Atherosclerotic heart disease of native coronary artery without angina pectoris; M10.9 Gout, unspecified; Z85.528 Personal history of other malignant neoplasm of kidney; Z90.5 Acquired absence of kidney
CPT/HCPCS: 36415; 71045; 80048; 80053; 80061; 82607; 83036; 83540; 83550; 83695; 83880; 84153; 84443; 85025; 85347; 86141; 92972; 93005; 93306; 93454; 96372; 96374; 96375; 99152; 99153; 99285; C1725; C1769; C1874; C1887; C1894; C9600; C9765; J1200; J1644; J2250; J2270; J2405; J3010; J3490; J7030; J9999; Q9967

== ENCOUNTER → 2025-04-07 13:05 | Outpatient (BNVA) | payer MEDICARE, SELFPAY | PROVIDERS: PCP Family Medicine; Visit Provider Internal Medicine Cardiovascular Disease | DX: I25.10 Atherosclerotic heart disease of native coronary artery without angina pectoris (principal); I35.0 Nonrheumatic aortic (valve) stenosis; N30.90 Cystitis, unspecified without hematuria; N40.0 Benign prostatic hyperplasia without lower urinary tract symptoms; Z95.5 Presence of coronary angioplasty implant and graft | CPT/HCPCS: 99214 ==